=== PATIENT | male | born 1995 | race Two or more races ===

== ENCOUNTER 2021-12-20 12:24 | Observation (INO) | payer OTHER ==
--- NOTE | 2021-12-20 12:47 | ED ---
General Adult HPI - General Chief complaint: Altered Mental Status Stated complaint: overdose Time Seen by Provider: 12/20/21 12:27 Source: patient, RN notes reviewed, old records reviewed Mode of arrival: EMS Limitations: no limitations - History of Present Illness Initial comments: 26-year-old male presenting for evaluation of suspected overdose. Patient comment from [place], patient was minimally responsive requiring Narcan. He does have history of both description and sentinel use. He admits to taking 6 mg of Xanax today. He states he used fentanyl yesterday. He was given Narcan and was alert. He is alert at the time my evaluation. He denies suicide attempt. He states this was intentional use of both fentanyl and benzodiazepines. - Related Data Home Medications Medication Instructions Recorded Confirmed Albuterol Sulfate [Proair Hfa] 2 puff INHALATION RT-Q6H PRN 12/20/21 12/20/21 Calcium Carbonate 500 mg PO DAILY 12/20/21 12/20/21 Echinacea 400 mg PO DAILY 12/20/21 12/20/21 traZODone HCL [Trazodone HCl] 100 mg PO HS 12/20/21 12/20/21 Allergies Allergy/AdvReac Type Severity Reaction Status Date / Time No Known Allergies Allergy Verified 12/20/21 13:42 Review of Systems ROS Statement: Those systems with pertinent positive or pertinent negative responses have been documented in the HPI. ROS Other: All systems not noted in ROS Statement are negative. Past Medical History Past Medical History: No Reported History History of Any Multi-Drug Resistant Organisms: None Reported Past Surgical History: No Surgical Hx Reported Past Psychological History: No Psychological Hx Reported Smoking Status: Current every day smoker Past Alcohol Use History: Occasional Past Drug Use History: Heroin, Opiates, Prescription Drug Abuse General Exam Limitations: no limitations General appearance: alert, in no apparent distress Head exam: Present: atraumatic, normocephalic Eye exam: Present: normal appearance, PERRL ENT exam: Present: normal exam Neck exam: Present: normal inspection. Absent: tenderness, meningismus Respiratory exam: Present: normal lung sounds bilaterally. Absent: respiratory distress, wheezes Cardiovascular Exam: Present: regular rate, normal rhythm GI/Abdominal exam: Present: soft. Absent: distended, tenderness, guarding Extremities exam: Present: normal inspection, normal capillary refill Neurological exam: Present: alert, CN II-XII intact. Absent: motor sensory deficit Psychiatric exam: Present: flat affect Skin exam: Present: warm, dry, intact. Absent: cyanosis, diaphoretic Course Vital Signs 12/20/21 12/20/21 12/20/21 12:32 12:49 14:19 Temperature 97 F L Pulse Rate 86 94 86 Respiratory 14 14 14 Rate Blood Pressure 119/74 119/74 96/60 O2 Sat by Pulse 96 96 98 Oximetry 12/20/21 15:00 Temperature Pulse Rate 77 Respiratory 16 Rate Blood Pressure 104/65 O2 Sat by Pulse 95 Oximetry Medical Decision Making - Medical Decision Making 26-year-old male presenting with overdose. Patient admits to both fentanyl and Xanax. He is lethargic but arousable. He is maintaining his airway and has a restaurant rate of about 12-14. No hypoxia. No need for supplemental oxygen. He does test positive for both cocaine and benzodiazepines. He remains lethargic but arousable while the emergency department. He will be admitted for close observation awaiting sobriety. Case discussed with [facility]. - Lab Data Result diagrams: 12/20/21 12:47 12/20/21 12:47 Lab Results 12/20/21 12/20/21 12/20/21 Range/Units 12:47 12:47 13:19 WBC 3.9 (3.8-10.6) k/uL RBC 4.02 L (4.30-5.90) m/uL Hgb 12.2 L (13.0-17.5) gm/dL Hct 36.3 L (39.0-53.0) % MCV 90.2 (80.0-100.0) fL MCH 30.2 (25.0-35.0) pg MCHC 33.5 (31.0-37.0) g/dL RDW 13.9 (11.5-15.5) % Plt Count 200 (150-450) k/uL MPV 8.7 Neutrophils % 53 % Lymphocytes % 36 % Monocytes % 7 % Eosinophils % 2 % Basophils % 1 % Neutrophils # 2.1 (1.3-7.7) k/uL Lymphocytes # 1.4 (1.0-4.8) k/uL Monocytes # 0.3 (0-1.0) k/uL Eosinophils # 0.1 (0-0.7) k/uL Basophils # 0.0 (0-0.2) k/uL Sodium 137 (137-145) mmol/L Potassium 3.9 (3.5-5.1) mmol/L Chloride 102 (98-107) mmol/L Carbon Dioxide 30 (22-30) mmol/L Anion Gap 5 mmol/L BUN 8 L (9-20) mg/dL Creatinine 0.63 L (0.66-1.25) mg/dL Est GFR (CKD-EPI)AfAm >90 (>60 ml/min/1.73 sqM) Est GFR (CKD-EPI)NonAf >90 (>60 ml/min/1.73 sqM) Glucose 81 (74-99) mg/dL Calcium 9.0 (8.4-10.2) mg/dL Total Bilirubin 0.7 (0.2-1.3) mg/dL AST 46 (17-59) U/L ALT 42 (4-49) U/L Alkaline Phosphatase 68 (38-126) U/L Total Protein 6.3 (6.3-8.2) g/dL Albumin 3.6 (3.5-5.0) g/dL Salicylates <1.0 mg/dL Urine Opiates Screen Not Detected (NotDetected) Ur Oxycodone Screen Not Detected (NotDetected) Urine Methadone Screen Not Detected (NotDetected) Ur Propoxyphene Screen Not Detected (NotDetected) Acetaminophen <10.0 ug/mL Ur Barbiturates Screen Not Detected (NotDetected) U Tricyclic Antidepress Not Detected (NotDetected) Ur Phencyclidine Scrn Not Detected (NotDetected) Ur Amphetamines Screen Not Detected (NotDetected) U Methamphetamines Scrn Not Detected (NotDetected) U Benzodiazepines Scrn Detected H (NotDetected) Urine Cocaine Screen Detected H (NotDetected) U Marijuana (THC) Screen Not Detected (NotDetected) Serum Alcohol <10 mg/dL Disposition Clinical Impression: Drug overdose Disposition: ADMITTED IP TO THIS [facility] Condition: Stable Is patient prescribed a controlled substance at d/c from ED?: No Referrals: None,Stated [Primary Care Provider] - 1-2 days Time of Disposition: 15:18
[2021-12-20 13:16] LABS: Basophils % (A) 1 %; Eosinophils # (A) 0.1 k/uL (0-0.7); Eosinophils % (A) 2 %; HCT 36.3 % (39.0-53.0); HGB 12.2 gm/dL (13.0-17.5); Lymphocytes # (A) 1.4 k/uL (1.0-4.8); Lymphocytes % (A) 36 %; MCH 30.2 pg (25.0-35.0); MCHC 33.5 g/dL (31.0-37.0); MCV 90.2 fL (80.0-100.0); Mean Platelet Volume 8.7; Monocytes # (A) 0.3 k/uL (0-1.0); Monocytes % (A) 7 %; Neutrophils # (A) 2.1 k/uL (1.3-7.7); Neutrophils % (A) 53 %; Platelet Count 200 k/uL (150-450); RBC 4.02 m/uL (4.30-5.90); RDW 13.9 % (11.5-15.5); WBC 3.9 k/uL (3.8-10.6)
[2021-12-20 13:29] LABS: ALT 42 U/L (4-49); AST 46 U/L (17-59); Acetaminophen <10.0 ug/mL; African American GFR (CKD) >90 (>60 ml/min/1.73 sqM); Albumin 3.6 g/dL (3.5-5.0); Alcohol <10 mg/dL; Alkaline Phosphatase 68 U/L (38-126); Anion Gap 5 mmol/L; Blood Urea Nitrogen 8 mg/dL (9-20); Carbon Dioxide 30 mmol/L (22-30); Chloride 102 mmol/L (98-107); Glucose 81 mg/dL (74-99); Non-African American GFR(CKD) >90 (>60 ml/min/1.73 sqM); Potassium 3.9 mmol/L (3.5-5.1); Salicylate <1.0 mg/dL; Sodium 137 mmol/L (137-145); Total Bilirubin 0.7 mg/dL (0.2-1.3); Total Protein 6.3 g/dL (6.3-8.2)
[2021-12-20 13:46] LABS: Amphetamine Screen,Urine Not Detected (NotDetected); Barbiturate Screen,Urine Not Detected (NotDetected); Benzodiazepines Screen,Urine Detected (NotDetected); Cocaine Screen,Urine Detected (NotDetected); Methadone Screen, Urine Not Detected (NotDetected); Opiate Screen,Urine Not Detected (NotDetected); Oxycodone Screen, Urine Not Detected (NotDetected); Phencyclidine Screen,Urine Not Detected (NotDetected); Tricyclic Antidepressant,Urine Not Detected (NotDetected); Urn Cannabinoid Scrn Not Detected (NotDetected)
[2021-12-20] MEDS ORDERED: NALOXONE 0.4 MG/ML 1 ML VIAL IV PRN (15:18)
[2021-12-20] MEDS ORDERED: SODIUM CHLORIDE 0.9% 1,000 ML IV STA (15:32)
--- NOTE | 2021-12-20 15:34 | P.HPIM ---
History of Present Illness H&P Date: 12/20/21 Chief Complaint: Lethargic Patient is a 26-year-old male who comes into the hospital with suspected overdose. Patient presented to [facility] very lethargic and minimal responsiveness. EMS was called and he was given intranasal Narcan with some improvement. He was then brought into the hospital here. Patient is unable to provide any history. History is obtained from [facility]. Patient supposedly has a history of also taking 6 mg of Xanax today. There is a history of fentanyl use. Drug screen patient was positive for benzo and cocaine. Patient is following limited commands. He is lethargic. Currently protecting his airway Review of Systems Complete review of system unable to be completed secondary to patient's acute encephalopathy Past Medical History Past Medical History: No Reported History History of Any Multi-Drug Resistant Organisms: None Reported Past Surgical History: No Surgical Hx Reported Past Psychological History: No Psychological Hx Reported Smoking Status: Current every day smoker Past Alcohol Use History: Occasional Past Drug Use History: Heroin, Opiates, Prescription Drug Abuse Medications and Allergies Home Medications Medication Instructions Recorded Confirmed Type Albuterol Sulfate [Proair Hfa] 2 puff INHALATION RT-Q6H PRN 12/20/21 12/20/21 History Calcium Carbonate 500 mg PO DAILY 12/20/21 12/20/21 History Echinacea 400 mg PO DAILY 12/20/21 12/20/21 History traZODone HCL [Trazodone HCl] 100 mg PO HS 12/20/21 12/20/21 History Allergies Allergy/AdvReac Type Severity Reaction Status Date / Time No Known Allergies Allergy Verified 12/20/21 13:42 Physical Exam Osteopathic Statement: *. No significant issues noted on an osteopathic structural exam other than those noted in the History and Physical/Consult. Vitals: Vital Signs Temp Pulse Resp BP Pulse Ox 12/20/21 15:00 77 16 104/65 95 12/20/21 14:19 86 14 96/60 98 12/20/21 12:49 94 14 119/74 96 12/20/21 12:32 97 F L 86 14 119/74 96 Intake and Output 12/20/21 12/20/21 12/20/21 06:59 14:59 22:59 Other: Weight 64.41 kg Gen.: Lethargic no acute distress HEENT: Normocephalic atraumatic trachea is midline no JVD Heart: Regular rate and rhythm Lungs: Clear to auscultation bilaterally Abdomen: Soft nondistended nontender to palpation Extremities: No lower extremity edema Skin: Clean dry and intact Results CBC & Chem 7: 12/20/21 12:47 12/20/21 12:47 Labs: Abnormal Lab Results - Last 24 Hours (Table) 12/20/21 12/20/21 12/20/21 Range/Units 12:47 12:47 13:19 RBC 4.02 L (4.30-5.90) m/uL Hgb 12.2 L (13.0-17.5) gm/dL Hct 36.3 L (39.0-53.0) % BUN 8 L (9-20) mg/dL Creatinine 0.63 L (0.66-1.25) mg/dL U Benzodiazepines Scrn Detected H (NotDetected) Urine Cocaine Screen Detected H (NotDetected) Assessment and Plan Plan: Acute metabolic encephalopathy Acute drug overdose -Patient admitted to the hospital encephalopathic secondary to drug overdose. Patient's urine drug screen reveals benzodiazepines and cocaine. Patient re ports IV fentanyl use day prior -Currently patient is protecting airway vital signs are stable he is easily aroused and follows commands when prompted. -Continue with supportive care -IV fluids normal saline 60 mL per hour
[2021-12-21] MEDS ORDERED: ENOXAPARIN 40 MG/0.4 ML SYRINGE SQ SCH (09:00)
[2021-12-21 11:04] VITALS: BP 97/56; PULSE 89; RESP 14; TEMP 98.7
--- NOTE | 2021-12-21 12:54 | P.DS ---
Providers Date of admission: 12/20/21 15:18 Attending physician: Francesco Jane MD Primary care physician: Stated None Hospital Course: Patient is a 26-year-old male was brought into the hospital with suspected overdose. Patient was at rehab facility [facility] and was found to be lethargic and minimally responsive therefore they sent patient to the hospital. Patient was encephalopathic when he arrived. He was following some commands and he was protecting his airway. He reportedly told 6 mg of Xanax and that he also took IV fentanyl the day before. Patient struck seen was positive for benzos and cocaine. The following day patient's was more alert and responsive he was answering questions appropriately he was not having any complaints of chest pain or shortness of breath he is being discharged to rehab facility Plan - Discharge Summary New Discharge Prescriptions: Continue traZODone HCL 100 mg PO HS Echinacea 400 mg PO DAILY Albuterol Sulfate [Proair Hfa] 2 puff INHALATION RT-Q6H PRN PRN Reason: Shortness Of Breath Calcium Carbonate 500 mg PO DAILY Discharge Medication List Albuterol Sulfate [Proair Hfa] 2 puff INHALATION RT-Q6H PRN 12/20/21 [History] Calcium Carbonate 500 mg PO DAILY 12/20/21 [History] Echinacea 400 mg PO DAILY 12/20/21 [History] traZODone HCL 100 mg PO HS 12/20/21 [History] Follow up Appointment(s)/Referral(s): None,Stated [Primary Care Provider] - 1-2 days Discharge Disposition: OTHER INSTITUTION NOT DEFINED
== END 2021-12-21 14:02 | disposition other institution (70) ==
LOC: EC 12:24 → 6NMEDSUR 15:18
PROVIDERS: ADMIT Internal Medicine; ATTEND Internal Medicine
DX: T42.4X1A Poisoning by benzodiazepines, accidental (unintentional), initial encounter (principal); G93.41 Metabolic encephalopathy; F11.10 Opioid abuse, uncomplicated; F14.90 Cocaine use, unspecified, uncomplicated; F17.200 Nicotine dependence, unspecified, uncomplicated; Z79.899 Other long term (current) drug therapy
CPT/HCPCS: 96361 ×3; 96372; 96360; 99285; 36415; 80053; 85025; 80306; 80143; 80179; G0378 ×2; G0480; J1650; 80320